=== PATIENT | male | born 1965 | race African-American/Black ===

== ENCOUNTER 2020-08-26 08:42 | Emergency (ER) | payer MEDICARE ==
[~2020-08-26] VITALS: Ht 175.3 cm; Wt 83.2 kg
[2020-08-26] MEDS ORDERED: diazePAM 5 MG TABLET PO ONE (09:30)
[2020-08-26] MEDS ORDERED: ORPHENADRINE CITRATE 60 MG/2 ML VIAL. IM ONE (09:30)
[2020-08-26] MEDS ORDERED: TRAM50TA PO (10:02)
[2020-08-26] MEDS ORDERED: CYCL10TA2 PO (10:02)
--- NOTE | 2020-08-26 10:03 | PHYS DOC ---
Past Medical History Past Medical History: Hypertension, Other (muscle spasm problem) Past Surgical History: Tonsillectomy Smoking Status: Current Every Day Smoker Additional Information: 0.3 PPD Alcohol Use: Occasionally General Adult EDM: Chief Complaint: MUSCLE SPASM/CRAMP HPI: HPI: Patient is a 54 year old male who present to ER for evaluation of muscle spasm and it back in his lower extremity. Symptoms have been going on since last night. Patient had a history of this problem for a long time, he was seen by his doctor, Was put on hydrocodone and Zanaflex. Patient really with hydrocodone, he took Zanaflex but did not working, so he came here for evaluation. Patient denies any nausea vomiting, no diarrhea, no abdominal pain. Patient denies any cough or fever, no chest pain. Review of Systems: Review of Systems: Constitutional: Denies fever or chills. [] Eyes: Denies change in visual acuity. [] HENT: Denies nasal congestion or sore throat. [] Respiratory: Denies cough or shortness of breath. [] Cardiovascular: Denies chest pain or edema. [] GI: Denies abdominal pain, nausea, vomiting, bloody stools or diarrhea. [] : Denies dysuria. [] Musculoskeletal: Positive for muscle spasm on his back and on her extremity, denies any back pain. Integument: Denies rash. [] Neurologic: Denies headache, focal weakness or sensory changes. [] Endocrine: Denies polyuria or polydipsia. [] Lymphatic: Denies swollen glands. [] Psychiatric: Denies depression or anxiety. [] Heart Score: C/O Chest Pain: N/A Risk Factors: Risk Factors: DM, Current or recent (<one month) smoker, HTN, HLP, family history of CAD, obesity. Risk Scores: Score 0 - 3: 2.5% MACE over next 6 weeks - Discharge Home Score 4 - 6: 20.3% MACE over next 6 weeks - Admit for Clinical Observation Score 7 - 10: 72.7% MACE over next 6 weeks - Early Invasive Strategies Current Medications: Current Medications Medications (Trade) Dose Ordered Sig/Eloy Start Time Stop Time Status Last Admin Dose Admin Diazepam (Valium) 5 mg 1X ONCE 08/26/20 09:30 08/26/20 09:31 DC 08/26/20 09:19 5 MG Orphenadrine Citrate (Norflex) 60 mg 1X ONCE 08/26/20 09:30 08/26/20 09:31 DC 08/26/20 09:19 60 MG Allergies: Allergies: Allergies Coded Allergies Type Severity Reaction Last Updated Verified aspirin Allergy Intermediate Itching 08/26/20 Yes Physical Exam: PE: Constitutional: Well developed, well nourished, no acute distress, non-toxic appearance. [] HENT: Normocephalic, atraumatic, bilateral external ears normal, oropharynx moist, no oral exudates, nose normal. [] Eyes: PERRLA, EOMI, conjunctiva normal, no discharge. [] Neck: Normal range of motion, no tenderness, supple, no stridor. [] Cardiovascular:Heart rate regular rhythm, no murmur [] Lungs & Thorax: Bilateral breath sounds clear to auscultation [] Abdomen: Bowel sounds normal, soft, no tenderness, no masses, no pulsatile masses. [] Skin: Warm, dry, no erythema, no rash. [] Back: No tenderness, no CVA tenderness. [] Extremities: No tenderness, no cyanosis, no clubbing, ROM intact, no edema. [] Neurologic: Alert and oriented X 3, normal motor function, normal sensory function, no focal deficits noted. [] Psychologic: Affect normal, judgement normal, mood normal. [] Current Patient Data: Vital Signs: Vital Signs Date Time Temp Pulse Resp B/P (MAP) Pulse Ox O2 Delivery O2 Flow Rate FiO2 08/26/20 09:00 98.7 68 16 140/84 (102) 96 Room Air 98.7 EKG: EKG: [] Radiology/Procedures: Radiology/Procedures: [] Course & Med Decision Making: Course & Med Decision Making Pertinent Labs and Imaging studies reviewed. (See chart for details) Patient is a 54-year-old male who present to ER due to muscle spasm. Patient was given a shot of Norflex and Valium p.o., with hydrocodone in the ER, patient felt much better, patient was discharged home with muscle relaxer and tramadol. Patient was advised to follow-up with family physician for outpatient reevaluation. Dragon Disclaimer: Dragon Disclaimer: This electronic medical record was generated, in whole or in part, using a voice recognition dictation system. Departure Departure Impression: Primary Impression: Muscle spasm Disposition: HOME / SELF CARE / HOMELESS Condition: STABLE Patient Instructions: Muscle Cramps Additional Instructions: Thank you for visiting our Emergency Department. We appreciate you trusting us with your care. If any additional problems come up don't hesitate to return to visit us. Please follow up with your primary care provider so they can plan additional care if needed and know about the problem that you had. If symptoms worsen come back to the Emergency Department. Any concerning symptoms that start such as chest pain, shortness of air, weakness or numbness on one side of the body, running high fevers or any other concerning symptoms return to the ER. Scripts Tramadol Hcl (TRAMADOL HCL) 50 Mg Tablet 50 MG PO QID PRN for PAIN, #20 TAB 0 Refills Prov: RIGOBERTO KIRKPATRICK DO 08/26/20 Cyclobenzaprine Hcl (CYCLOBENZAPRINE HCL) 10 Mg Tablet 1 TAB PO TID PRN for MUSCLE SPASMS, #30 TAB Prov: RIGOBERTO KIRKPATRICK DO 08/26/20 RIGOBERTO KIRKPATRICK DO Aug 26, 2020 10:02
[2020-08-26] MEDS ORDERED: HYDROcodone/APAP 5/325MG 1 TAB TABLET PO ONE (10:15)
[2020-08-26 10:26] VITALS: BP 149/82
== END 2020-08-26 10:36 | disposition home or self-care (01) ==
LOC: ER 08:42
DX: M62.830 Muscle spasm of back (principal); I10 Essential (primary) hypertension; F17.200 Nicotine dependence, unspecified, uncomplicated; Z88.6 Allergy status to analgesic agent
CPT/HCPCS: 96372; 99283; J2360